=== PATIENT | male | born 1985 | race Caucasian/White ===

== ENCOUNTER 2018-09-24 00:53 | Emergency (ER) | payer SELFPAY ==
[~2018-09-24] VITALS: Ht 167.6 cm; Wt 75.7 kg
--- NOTE | 2018-09-24 00:53 | NUR ---
PT KRUNAL ZENG, PREBOOK. TAKEN TO CHAIR E
[2018-09-24 01:02] VITALS: BP 128/98
[2018-09-24 01:07] VITALS: BP 128/98
--- NOTE | 2018-09-24 01:16 | NUR ---
Dr. Nur evaluating patient
--- NOTE | 2018-09-24 01:25 | NUR ---
Patient discharged with v/s stable. Written and verbal after care instructions given and explained. Patient verbalized understanding. Police with in custody. All questions addressed prior to discharge. Advised to follow up with PMD.
== END 2018-09-24 01:25 ==
LOC: MED 00:53
DX: H57.89 Other specified disorders of eye and adnexa (principal); Z02.89 Encounter for other administrative examinations; V49.40XA Driver injured in collision with unspecified motor vehicles in traffic accident, initial encounter; Y93.89 Activity, other specified; Y92.89 Other specified places as the place of occurrence of the external cause; Y99.8 Other external cause status
CPT/HCPCS: 99283